=== PATIENT | male | born 1950 | race Caucasian/White ===

== ENCOUNTER 2018-11-08 15:46 | Emergency (ER) | payer OTHER ==
[~2018-11-08] VITALS: Ht 177.8 cm; Wt 77.6 kg
--- OUTSIDE RECORDS SUMMARY | 2018-11-08 15:48 | XMS REPORT | Clinical Summary ---
Author Author [facility] Organization [facility] Address Unknown Phone Unavailable Care Team Providers Care [employer] Officer Name Role Phone Rajiv Alejo MD PCP Allergies No Known Allergies Medications End Date Status Medication Sig Dispensed Refills Start Date Active atorvastatin (LIPITOR) 80 Take 80 mg by 0 MG tablet mouth daily. Active metoprolol succinate XL Take 50 mg by 0 (TOPROL-XL) 50 MG 24 hr mouth daily. tablet Active aspirin (ECOTRIN) 81 MG Take 81 mg by 0 enteric coated tablet mouth daily. Active omeprazole (PriLOSEC) 40 Take 40 mg by 0 MG capsule mouth daily. Active varenicline (CHANTIX) 0.5 Take 0.5 mg 0 MG tablet by mouth 2 (two) times a day. Take with full glass of water. Active pseudoepHEDrine (SUDAFED) Take 10 mg by 0 30 MG tablet mouth every 4 (four) hours as needed for congestion. Active Problems Problem Noted Date S/P hernia repair 12/23/2015 Social History Date Tobacco Use Types Packs/Day Years Used Current Some Day Smoker Cigarettes 0.75 34 Tobacco Cessation: Counseling Given: Yes Comments: chantix Drinks/Week oz/Week Comments Alcohol Use No Sex Assigned at Date Recorded Not on file Industry Job Start Date Occupation Not on file Not on file Not on file Travel End Travel History Travel Start No recent travel history available. Last Filed Vital Signs Not on file Plan of Treatment Health Maintenance Due Date Last Done Comments COLONOSCOPY SCREENING 10/11/2001 SHINGLES VACCINES (#1) 10/11/2001 65+ PNEUMOCOCCAL VACCINE 10/11/2016 (1 of 2 - PCV13) INFLUENZA VACCINE 09/14/2018 Implants Device Identifier Shelf Expiration Date Model / Serial / Lot Implanted Type Area Manufactur er 06/13/2020 [id number] / / [id number] Instrument Fxtn Soft Tiss 30 Tack Surgical N/A: N/A COVIDIEN Ti 35.5cm 5mm Strl Protack - Implants; [place] [id number] Expanders; SURGICAL Implanted: 12/23/2015 at [facility] Extenders; HOSPITAL (Quantity not on file) Surgical Wires 12/15/2019 [id number] / / [id number] Mesh Hrnia Rpr Dualmesh [id number] 1mm Vascular N/A: Abdomen, [place] Oval Ptfe Ventrl - [id number] Graft Middle Implanted: 12/23/2015 at [facility] Quadrant/Non HOSPITAL (Quantity not on file) Specific Results Not on fileafter 11/07/2017 Insurance Type Payer Benefit Subscriber ID Effective Phone Address Plan / Dates Group [facility] USP xxxxxxxxxxx [id number] resent Advance Directives For more information, please contact: [phone] Patient Country Printer Explanation Type Date Recorded Advance Directives, Living Will and Medical Power of Fbi Special Agent
--- NOTE | 2018-11-08 17:39 | NUR ---
PT TO WINDOW MANY TIMES, RUDE TO STAFF, ABRASIVE. PT MAD BECAUSE EMS TOLD HIM HE WOULD BE TRANSFERRED ONCE HE GOT HERE TO [place]. PT COMPLAINS MULTIPLE TIMES AT WINDOW. PT STATES HE WONT BE ADMITTED, "IN THIS [facility] PLACE."
--- NOTE | 2018-11-08 17:46 | Diagnostic Imaging Report ---
EXAMINATION: CHEST 2 VIEWS INDICATION: Hemoptysis COMPARISON: None FINDINGS: LINES/TUBES:None LUNGS:The lungs are mildly hyperinflated. No focal consolidation or pulmonary edema. PLEURA:No pleural effusion or pneumothorax. MEDIASTINUM:The cardiomediastinal silhouette appears normal in size and shape. Atherosclerotic calcifications of the thoracic aorta. BONES/SOFT TISSUES:No acute osseous injury. Median sternotomy wires intact. ABDOMEN:No free air under the diaphragm. IMPRESSION: Hyperinflated lungs. No focal pneumonia or pulmonary edema. Signed by: Bob Cat MD on 11/08/2018 5:43 PM
== END 2018-11-08 18:50 | disposition home or self-care (01) ==
LOC: ER 15:46
DX: R05 Cough (principal); J20.9 Acute bronchitis, unspecified; E11.9 Type 2 diabetes mellitus without complications; K21.9 Gastro-esophageal reflux disease without esophagitis; F43.10 Post-traumatic stress disorder, unspecified; Z98.84 Bariatric surgery status; F17.210 Nicotine dependence, cigarettes, uncomplicated
CPT/HCPCS: 71046; 99283